=== PATIENT | female | born 1950 | race Caucasian/White ===

== ENCOUNTER 2019-06-05 06:00 | Day surgery (SDC) | payer MEDICARE, BC ==
[~2019-06-05] VITALS: Ht 162.6 cm; Wt 63.5 kg
[~2019-06-05 06:00] MED LIST: CALCIUM 600 +1 EAC5 PO; CRANBERRY200 MG PO; FLUOXETINE HCL40 MG PO; MULTIVITAMINS1 EAC7 PO; PROGESTERONE200 MG PO; ZOLPIDEM TARTRAT5 MG PO
[2019-06-05] MEDS ORDERED: LIOTHYRONINE SO5 MCG PO (06:14)
[2019-06-05] MEDS ORDERED: TIROSINT25 MCG PO (06:15)
--- NOTE | 2019-06-05 08:34 | NUR ---
06/05/19 0834 Miracle Bennett 0824- PT ARRIVES TO PACU NONAROUSABLE TO NOXIOUS STIMULI. RESP EVEN AND UNLABORED. OXYGEN SAT HIGH 90'S TO 100% ON 6L VIA MASK. 0832- PT IS AROUSABLE TO TACTILE STIMULI. OXYGEN MASK REMOVED. PT UPDATED THAT SHE IS IN THE RECOVERY ROOM. PT STATES UNDERSTANDING AND FALLS BACK TO SLEEP.
--- NOTE | 2019-06-05 11:59 | OR ---
[facility] [address], [place] [address] Signed DATE OF OPERATION: 06/05/2019 SURGEON: Alyssa Mirza MD PREOPERATIVE DIAGNOSIS: History of tubular adenoma at 20 cm. POSTOPERATIVE DIAGNOSIS: No evidence of recurrent polyp. Incomplete colonoscopy. PROCEDURE: Total colonoscopy without certain visualization of cecum. ANESTHESIA: Propofol infusion; Val Wilkinson CRNA. INDICATION: This 69-year-old white woman is a patient of YOHANNES Blankenship, and has history of tubular adenoma excised in 2015. This was at 20 cm from the anal verge. She required a fair amount of IV sedation due to difficulty of the scope and on that basis, propofol infusional therapy was recommended at this point. The risks of bleeding, infection, and perforation related to colonoscopy were reviewed with her. She understands and wished to proceed. FINDINGS: The prep was good. There was a redundant colon and twist like configuration that made colonoscopy difficult as previously. The cecum could not be certainly intubated. Two different scopes were used and various maneuvers undertaken, but further persistence of attempting of colonoscopy would likely result in perforation and incomplete colonoscopy, would have to be admitted. DESCRIPTION OF PROCEDURE: The patient was brought to the surgical room endoscopy suite, placed in lateral decubitus position, given intravenous sedation with propofol infusional technique. Digital rectal examination was normal. An Olympus video colonoscope, pediatric size was inserted and manipulated through the sigmoid and left colon and beyond the splenic flexure. Passage beyond this to the right colon was quite difficult noting a twisted-type configuration. Various maneuvers were undertaken including abdominal wall stabilization, position change to supine and so Electronically Signed By: ALYSSA MIRZA MD 06/05/19 1159 PATIENT NAME: OCTAVIO LAUREN OPERATIVE REPORT DATE OF : 54 REPORT #: [id number] PHYSICIAN: ALYSSA MIRZA MD PCP: TUYET LEE REPORT IS CONFIDENTIAL AND NOT TO BE RELEASED WITHOUT AUTHORIZATION [facility] [address], [place] [address] Signed forth, but passage was not forthcoming. Some bradycardia was noted with efforts at passage of the scope, which passed quickly with cessation of pressure. The scope was carefully withdrawn and examination was normal. An adult colonoscope was then obtained and passed similarly, although passed a bit further, did not assuredly visualized the cecum, at least the ileocecal valve so far as I could tell. Further attempts were abandoned. The scope was then once again carefully withdrawn and examination showed no sign of polyps, diverticular formation, colitis, or cancer. The area at 20 cm was normal as well. The scope was retroflexed, which was normal. The scope was then removed. CONCLUDING DIAGNOSIS: The patient has no evidence of polyp on the examined colon. We will offer patient a completion barium enema (tomorrow) to visualize the cecum. Future colonoscopy should involve propofol infusional technique as well. MD VETO Wilde/JIM /[id number] cc: YOHANNES Blankenship Copies: TUYET LEE ~ Electronically Signed By: ALYSSA MIRZA MD 06/05/19 1159 PATIENT NAME: OCTAVIO LAUREN OPERATIVE REPORT DATE OF : 54 REPORT #: [id number] PHYSICIAN: ALYSSA MIRZA MD PCP: TUYET LEE REPORT IS CONFIDENTIAL AND NOT TO BE RELEASED WITHOUT AUTHORIZATION
--- NOTE | 2019-06-05 14:03 | NUR ---
PT ALERT, ORIENTED AND MENTIONED THAT SHE HAS HAD SCOPE BEFORE AND THAT SHE HAS A FRIEND COMING TO TAKE HER HOME. EXTENDED A BLESSING, WILL FOLLOW NEEDED
== END 2019-06-05 09:15 | disposition home or self-care (01) ==
LOC: OPS 06:00 → DS 06:00 → OPS 06:45
PROVIDERS: Surgery
PROC: 0DJD8ZZ Inspection of Lower Intestinal Tract, Via Natural or Artificial Opening Endoscopic (ICD-10-PCS; principal; 2019-06-05 06:45)
DX: Z09 Encounter for follow-up examination after completed treatment for conditions other than malignant neoplasm (principal); Z86.010 Personal history of colon polyps; E03.9 Hypothyroidism, unspecified; F41.9 Anxiety disorder, unspecified; Z98.890 Other specified postprocedural states; Z88.5 Allergy status to narcotic agent; Z78.0 Asymptomatic menopausal state; Z79.899 Other long term (current) drug therapy
CPT/HCPCS: J2250; J2704; J3010; J7121